=== PATIENT | female | born 1985 ===

== ENCOUNTER 2017-05-05 15:15 | Inpatient (IN) | payer OTHER ==
[~2017-05-05] VITALS: Ht 157.5 cm; Wt 2.7 kg
[2017-05-06] MEDS ORDERED: METHYLDOPA (09:41)
[2017-05-06] MEDS ORDERED: ASA81 MG PO (09:41)
[2017-05-06] MEDS ORDERED: PRENATABS FA T1 EACH PO (09:41)
[2017-05-06] MEDS ORDERED: FOLIC ACID1 MG PO (09:42)
== END 2017-05-22 17:55 | disposition home or self-care (01) | DRG 766 ==
LOC: LDR 05-11 15:15 → O/R 05-19 07:15 → LDR 05-19 09:47 → O/R 05-19 15:10 → OB/GYN 05-19 15:15
PROVIDERS: Obstetrics & Gynecology
PROC: 4A1HXCZ Monitoring of Products of Conception, Cardiac Rate, External Approach (ICD-10-PCS; 2017-05-19)
PROC: 0UT70ZZ Resection of Bilateral Fallopian Tubes, Open Approach (ICD-10-PCS; 2017-05-19)
PROC: 4A033R1 Measurement of Arterial Saturation, Peripheral, Percutaneous Approach (ICD-10-PCS; 2017-05-19)
PROC: 10D00Z1 Extraction of Products of Conception, Low, Open Approach (ICD-10-PCS; principal; 2017-05-19 09:00)
DX: O34.211 Maternal care for low transverse scar from previous cesarean delivery (principal); Z30.2 Encounter for sterilization; Z64.1 Problems related to multiparity; Z3A.39 39 weeks gestation of pregnancy; Z37.0 Single live birth

== ENCOUNTER 2017-05-16 01:11 | Outpatient (CLI) | payer OTHER ==
[~2017-05-16 01:11] MED LIST: ASA81 MG PO; FOLIC ACID1 MG PO; METHYLDOPA; PRENATABS FA T1 EACH PO
== END 2017-05-16 14:53 | disposition home or self-care (01) ==
LOC: OBS/DEL 01:11
DX: O16.3 Unspecified maternal hypertension, third trimester (principal); Z34.83 Encounter for supervision of other normal pregnancy, third trimester